=== PATIENT | female | born 1945 | race Caucasian/White ===

== ENCOUNTER 2022-06-14 08:11 | Day surgery (SDC) | payer MEDICARE ==
[2022-06-14] MEDS ORDERED: FERRIC CARBOXYMALTOSE 750 MG in SODIUM CHLORIDE 250 ML IVPB ONE (09:00)
[2022-06-14 11:21] VITALS: BP 131/54; PULSE 75; RESP 18; TEMP 98.1
== END 2022-06-14 10:50 | disposition home or self-care (01) ==
LOC: JONCNONCHE 08:11
PROVIDERS: ATTEND Internal Medicine Hematology & Oncology
PROC: 3E033GC Introduction of Other Therapeutic Substance into Peripheral Vein, Percutaneous Approach (ICD-10-PCS; principal; 2022-06-14)
DX: D50.9 Iron deficiency anemia, unspecified (principal)
CPT/HCPCS: 96365; J1439